=== PATIENT | male | born 1975 | race African-American/Black ===

== ENCOUNTER 2019-12-20 06:59 | Emergency (ER) | payer MEDICAID ==
[~2019-12-20] VITALS: Ht 182.9 cm; Wt 91.0 kg
[2019-12-20] MEDS ORDERED: IBUPROFEN 600MG TABLET PO ONE (08:30)
[2019-12-20 08:45] VITALS: BP 123/83
== END 2019-12-20 09:42 | disposition home or self-care (01) ==
LOC: ER 06:59
DX: M54.5 Low back pain (principal); V43.52XA Car driver injured in collision with other type car in traffic accident, initial encounter; Y93.9 Activity, unspecified; Y92.410 Unspecified street and highway as the place of occurrence of the external cause
CPT/HCPCS: 72100; 73502; 99284